=== PATIENT | male | born 1980 | race Caucasian/White ===

== ENCOUNTER → 2025-03-12 09:35 | Outpatient (BNVA) | payer OTHER, SELFPAY | PROVIDERS: Visit Provider Internal Medicine | DX: S52.121A Displaced fracture of head of right radius, initial encounter for closed fracture (principal); X58.XXXA Exposure to other specified factors, initial encounter | CPT/HCPCS: 99203 ==

== ENCOUNTER → 2025-03-14 09:48 | Outpatient (BNVA) | payer OTHER, SELFPAY | PROVIDERS: Visit Provider Internal Medicine | DX: M24.121 Other articular cartilage disorders, right elbow (principal) | CPT/HCPCS: 99213 ==

== ENCOUNTER → 2025-03-28 18:33 | Outpatient (BNV) | payer OTHER, SELFPAY | PROVIDERS: Visit Provider Radiology Diagnostic Radiology | DX: M19.021 Primary osteoarthritis, right elbow (principal) | CPT/HCPCS: 73221 ==

== ENCOUNTER 2025-03-28 19:16 | Outpatient (REF) | payer OTHER, SELFPAY ==
--- NOTE | ~2025-03-28 | MR_ITS ---
EXAMINATION: MR ELBOW WITHOUT CONTRAST, RIGHT TECHNIQUE: Multiplanar multisequence MR imaging was performed to image an upper extremity joint without contrast. INDICATION: Right elbow pain and tingling in the anterior, lateral, and posterior regions injury February 2025, PRIOR: None FINDINGS: Biceps and triceps tendons: Distal biceps tendon is intact. Distal triceps tendon is intact and unremarkable. Common flexor and extensor tendons: Common extensor tendon is intact and unremarkable. Common flexor tendon demonstrates increased signal near the humeral origin. Lateral collateral ligament complex and ulnar collateral ligament: Lateral collateral ligament complex is intact. Medial/ulnar collateral ligament appears intact. Bones/Marrow: Focal degenerative cyst is present involving the ulnar side of the radial head. There is mild reactive marrow signal in the subchondral bone of the radial head. There is multifocal reactive marrow signal changes involving subchondral bone of the patella. There are marginal osteophytes at the elbow joint, largest along the medial joint line. Soft tissues: There is no muscle edema or fatty replacement. There is no mass or fluid collection. Mildly complex joint effusion is small.. Neurovascular structures: There are no abnormalities along the major neurovascular bundles. Articular cartilage: There is diffuse deep partial and full-thickness articular cartilage loss involving the radial capitellar joint. There is focal partial thickness articular cartilage defect in the medial trochlea distal humerus and moderate thinning of cartilage on the lateral trochlea. The ulnar articular cartilage demonstrates heterogeneous signal MR/MR elbow RT wo con IMPRESSION: Osteoarthritis with severe changes in the radiocapitellar joint and mild changes in the ulnohumeral joint. There is secondary synovitis with a small joint effusion. Common flexor tendinopathy. Electronically signed by: Wood Balderas MD 03/29/2025 10:59 AM EDT
== END 2025-03-28 19:17 | disposition home or self-care (01) ==
LOC: HO.MRI 19:16
PROVIDERS: Visit Provider Internal Medicine
DX: M24.812 Other specific joint derangements of left shoulder, not elsewhere classified (principal)
CPT/HCPCS: 73221

== ENCOUNTER → 2025-04-02 09:43 | Outpatient (BNVA) | payer OTHER, SELFPAY | PROVIDERS: Visit Provider Internal Medicine | DX: S53.491D Other sprain of right elbow, subsequent encounter (principal); X58.XXXD Exposure to other specified factors, subsequent encounter; M19.021 Primary osteoarthritis, right elbow | CPT/HCPCS: 99213 ==

== ENCOUNTER 2025-04-19 09:11 | Outpatient (REF) | payer OTHER, SELFPAY ==
--- NOTE | ~2025-04-19 | XR_ITS ---
EXAMINATION: XR ELBOW, RIGHT CLINICAL INFORMATION: M25.529 - Pain in unspecified elbow COMPARISON: None available. MRI right elbow 03/28/2025. TECHNIQUE: AP, lateral, and oblique views of the right elbow. FINDINGS: No acute fracture, dislocation, or suspicious bone lesion. There is normal alignment. There is moderate to severe degenerative arthritis in the radiocapitellar, and ulnar trochlear joints, with joint space narrowing, subchondral cystic changes and marginal osteophytic spurs. The epicondyles demonstrate minimal spurring. There is no significant joint effusion. The soft tissues appear normal. XR/XR elbow RT min 3V IMPRESSION: Moderate to severe osteoarthrosis of the right elbow joint. No acute bony abnormalities. Electronically signed by: Bryan Guadalupe MD 04/19/2025 02:49 PM EDT
== END 2025-04-19 09:12 | disposition home or self-care (01) ==
LOC: HO.HOSX 09:11
PROVIDERS: Visit Provider Physician Assistant
DX: M19.021 Primary osteoarthritis, right elbow (principal); M25.521 Pain in right elbow; X50.9XXA Other and unspecified overexertion or strenuous movements or postures, initial encounter; Y92.89 Other specified places as the place of occurrence of the external cause; Y93.89 Activity, other specified; Y99.0 Civilian activity done for income or pay
CPT/HCPCS: 73080; 99202

== ENCOUNTER 2025-04-19 14:24 | Outpatient (AMB) | payer OTHER, SELFPAY ==
--- NOTE | 2025-04-19 14:32 | A.OFFVIS_ITS ---
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 One of his coworker grabbed his arm a certain way and he felt something was off in his elbow. When he was watching some training videos he started to developed more pain. He notices his ROM is limited and he feels his arm is tight. He states that he is going to [facility] physical therapy in [place]. IMPRESSION: Osteoarthritis with severe changes in the radiocapitellar joint and mild changes in the ulnohumeral joint. There is secondary synovitis with a small joint effusion. Common flexor tendinopathy. 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 Munguia is a 44 year left-hand dominant male who presents to the office today for a right elbow injury that he sustained while at work on 03/11/2025. 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 He reports that he was playing the role of the victim on the ground when his colleague looped his arm around his to attempt to drag him. He felt a pulling sensation and pain. Later during the day the pain developed more. He notices he has he a decrease in range of motion. He is working with physical therapy at [facility] in [place]. 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 No ecchymosis, erythema or joint effusion. Slight tenderness to palpation over the radial head and olecranon. Lacking about 10 degrees of full extension and flexion. Denies any numbness or tingling. Assessment & Plan Assessment & Plan (1) Osteoarthritis of right elbow: Code(s): M19.021 - Primary osteoarthritis, right elbow Category: Medical Plan Mr. Munguia is a 44 year left-hand dominant male who presents to the office today for a right elbow injury that he sustained while at work on 03/11/2025. 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 He reports that he was playing the role of the victim on the ground when his colleague looped his arm around his to attempt to drag him. He felt a pulling sensation and pain. Later during the day the pain developed more. He notices he has he a decrease in range of motion. He is working with physical therapy at [facility] in [place]. While the office today, I recommended that the patient continue attend physical therapy at [facility] in [place]. Patient did have an MRI prior to today's appointment that was obtained on 03/28/2025 which was negative for any acute findings. However, the patient does have significant degenerative changes about the right elbow. There are no surgical indications noted on MRI. I did however give the patient an out-of-work note until his follow up appointment as he needs to have full strength in bilateral upper extremities to perform his job duties. He will focus on physical therapy at this time, ice, rest, anti-inflammatories as needed. He will follow up in 4 weeks, sooner if needed. X-rays of the right elbow which were obtained while in the office today and were reviewed by me, Sharee Andrade PA-C, revealed osteoarthritis. No acute fracture or dislocation. Orders: Orders XR elbow RT min 3V 04/19/25 M25.529 - Pain in unspecified elbow Coding Level of Care Code New Pt Level 3 (56043) Diagnoses Osteoarthritis of right elbow M19.021
[2025-04-19 14:39] VITALS: BMI 29.4
== END 2025-04-19 15:05 | disposition home or self-care (01) ==
LOC: HO.HOS 14:25
PROVIDERS: Visit Provider Physician Assistant
DX: M19.021 Primary osteoarthritis, right elbow (principal)
CPT/HCPCS: 99203

== ENCOUNTER → 2025-04-19 14:28 | Outpatient (BNV) | payer OTHER, SELFPAY | PROVIDERS: Visit Provider Radiology Diagnostic Radiology | DX: M19.021 Primary osteoarthritis, right elbow (principal) | CPT/HCPCS: 73080 ==

== ENCOUNTER → 2025-04-23 09:02 | Outpatient (BNVA) | payer OTHER, SELFPAY | PROVIDERS: Visit Provider Internal Medicine | DX: S50.01XD Contusion of right elbow, subsequent encounter (principal); X58.XXXD Exposure to other specified factors, subsequent encounter | CPT/HCPCS: 99213 ==

== ENCOUNTER 2025-05-24 15:10 | Outpatient (AMB) | payer OTHER, SELFPAY ==
--- NOTE | 2025-05-24 15:12 | MHC.OFFVIS ---
Vital Signs 05/24/25 15:13 Height 5 ft 10 in Weight 205 lb BMI 29.4 Intake Visit Reasons: OV - right elbow OA, DOI 03/11/25 Intake Note: Vinnie is a 44 year old left hand dominant male who presents today for a follow up of his right elbow OA, DOI 03/11/25. At patients last visit he was referred to go to physical therapy. Patient states his ROM is improving but is unable to fully flex his arm and his shoulder and forearm still feels week. He mentions that he is attending physical therapy twice a week as well as home exercises which has helped. Patient takes Ibuprofen as needed for pain. Allergies No Known Allergies Allergy (Verified 05/24/25 15:19) HPI HPI OV - right elbow OA, DOI 03/11/25: Details: Mr. Munguia is a 44-year-old left-hand dominant male who presents to the office today after he sustained an elbow injury on 03/11/2025. 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 One of his coworkers grabbed his arm and moved it in an uncomfortable way. Ever since then he has been having pain. He has been attending [facility] Physical therapy in [place] where he does report that his range of motion and pain has been improving however is not back to baseline. They have been working on exercises pertaining to his work although he is not formally participating in a work hardening program. 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 No ecchymosis, erythema or joint effusion. Lacking about 5 degrees of full extension and flexion. Denies any numbness or tingling. Assessment & Plan Assessment & Plan (1) Osteoarthritis of right elbow: Code(s): M19.021 - Primary osteoarthritis, right elbow Category: Medical Plan Mr. Munguia is a 44-year-old left-hand dominant male who presents to the office today after he sustained an elbow injury on 03/11/2025. 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 One of his coworkers grabbed his arm and moved it in an uncomfortable way. Ever since then he has been having pain. He has been attending [facility] Physical therapy in [place] where he does report that his range of motion and pain has been improving however is not back to baseline. They have been working on exercises pertaining to his work although he is not formally participating in a work hardening program. While in the office today, we discussed continuation of physical therapy. Patient is not at the recovery point where he is able to return back to work as a full-time hearing care practitioner. I feel it is necessary to continue with physical therapy to work on range of motion and strengthening prior to returning back full-time regular duty. He will follow up in 5 weeks with a goal of returning back to work full-time regular duty, sooner if needed Coding Level of Care Code Est Pt Level 3 (92017) Diagnoses Osteoarthritis of right elbow M19.021
[2025-05-24 15:13] VITALS: BMI 29.4
== END 2025-05-24 15:26 | disposition home or self-care (01) ==
LOC: HO.HOS 15:10
PROVIDERS: Visit Provider Physician Assistant
DX: M19.021 Primary osteoarthritis, right elbow (principal)
CPT/HCPCS: 99213

== ENCOUNTER → 2025-05-24 15:10 | Outpatient (BNVA) | payer OTHER, SELFPAY | PROVIDERS: Visit Provider Physician Assistant | DX: M19.021 Primary osteoarthritis, right elbow (principal) | CPT/HCPCS: 99212 ==

== ENCOUNTER → 2025-06-01 11:15 | Outpatient (BNVA) | payer OTHER, SELFPAY | PROVIDERS: Visit Provider Internal Medicine | DX: S53.401D Unspecified sprain of right elbow, subsequent encounter (principal); S43.401D Unspecified sprain of right shoulder joint, subsequent encounter; X58.XXXD Exposure to other specified factors, subsequent encounter | CPT/HCPCS: 99213 ==

== ENCOUNTER 2025-06-29 10:42 | Outpatient (AMB) | payer OTHER, SELFPAY ==
--- NOTE | 2025-06-29 10:50 | A.OFFVIS_ITS ---
Intake Visit Reasons: OV- OV - right elbow OA, DOI 03/11/25 per Intake Note: Vinnie is a 44 year old left hand dominant male who presents today for a follow up of his right elbow OA, DOI 03/11/25. At patients he was advised to continue physical therapy to work on range of motion and strengthening prior to returning back full-time regular duty. Patient states that he is doing okay but still feels he needs more work with physical therapy. He notices that his ROM is not where he wants it to be. Patient informed me that physical therapy wants him to go to a work hard program. Allergies No Known Allergies Allergy (Verified 06/29/25 10:54) HPI HPI OV- OV - right elbow OA, DOI 03/11/25 per : Details: Mr. Munguia is a 44-year-old left-hand dominant male who presents to the office today after he sustained an elbow injury on 03/11/2025. 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 One of his coworkers grabbed his arm and moved it in an uncomfortable way. Ever since then he has been having pain. He has been attending [facility] Physical therapy in [place] where he does report that his range of motion and pain has been improving however is not back to baseline. 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 No ecchymosis, erythema or joint effusion. Lacking about 5 degrees of full extension and flexion. Denies any numbness or tingling. Assessment & Plan Assessment & Plan (1) Osteoarthritis of right elbow: Code(s): M19.021 - Primary osteoarthritis, right elbow Category: Medical Plan Mr. Munguia is a 44-year-old left-hand dominant male who presents to the office today after he sustained an elbow injury on 03/11/2025. 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 One of his coworkers grabbed his arm and moved it in an uncomfortable way. Ever since then he has been having pain. He has been attending [facility] Physical therapy in [place] where he does report that his range of motion and pain has been improving however is not back to baseline. While in the office today a formal occupational therapy order has been placed to do a work hardening program. He does not feel that he is safe to return back to work as he does not have full function of the right upper extremity. I did discuss with the patient that due to the amount of arthritis that is noted in the joint on x-ray he may not be able to perform the same amount of range of motion to the contralateral side. The duration of the work hardening program will be 4 weeks. He will follow up with me in 6 weeks with a goal of returning back to work, sooner if needed. Orders: Orders OT Evaluation and Treatment Today M19.021 - Primary osteoarthritis, right elbow Coding Level of Care Code Est Pt Level 3 (80688) Diagnoses Osteoarthritis of right elbow M19.021
== END 2025-06-29 11:08 | disposition home or self-care (01) ==
LOC: HO.HOS 10:43
PROVIDERS: Visit Provider Physician Assistant
DX: M19.021 Primary osteoarthritis, right elbow (principal)
CPT/HCPCS: 99213

== ENCOUNTER → 2025-06-29 10:42 | Outpatient (BNVA) | payer OTHER, SELFPAY | PROVIDERS: Visit Provider Physician Assistant | DX: M19.021 Primary osteoarthritis, right elbow (principal) | CPT/HCPCS: 99212 ==

== ENCOUNTER → 2025-06-29 11:17 | Outpatient (BNVA) | payer OTHER, SELFPAY | PROVIDERS: Visit Provider Internal Medicine | DX: M19.021 Primary osteoarthritis, right elbow (principal); M25.521 Pain in right elbow | CPT/HCPCS: 99213 ==

== ENCOUNTER 2025-08-17 09:41 | Outpatient (AMB) | payer OTHER, SELFPAY ==
--- NOTE | 2025-08-17 09:45 | MHC.OFFVIS ---
Intake Visit Reasons: OV - right elbow OA, DOI 03/11/25 Intake Note: Vinnie is a 44 year old left hand dominant male who presents today for a follow up of his right elbow OA, DOI 03/11/25. At patients last visit he was advised to continue work hardening program. Patient reports he is doing good. He states that the program has helped him a lot. Allergies No Known Allergies Allergy (Verified 08/17/25 09:45) HPI HPI OV - right elbow OA, DOI 03/11/25: Details: Mr. Munguia is a 44-year-old left-hand dominant male who presents to the office today for routine follow up of a right elbow injury that he sustained on 03/11/2025. He has been attending work conditioning at physical therapy with [facility] in [place]. He reports that he has made great progress and although he continues to feel crunching in the right elbow he feels he is ready to return back to work. 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 No ecchymosis, erythema or joint effusion. ROM 0-140 with full pronation and supination. Denies any numbness or tingling. NVI. Psych Appearance: grossly normal Mental Status: mental status grossly normal Attitude: cooperative Assessment & Plan Assessment & Plan (1) Osteoarthritis of right elbow: Code(s): M19.021 - Primary osteoarthritis, right elbow Category: Medical Plan Mr. Munguia is a 44-year-old left-hand dominant male who presents to the office today for routine follow up of a right elbow injury that he sustained on 03/11/2025. He has been attending work conditioning at physical therapy with [facility] in [place]. He reports that he has made great progress and although he continues to feel crunching in the right elbow he feels he is ready to return back to work. While the office today, the patient reports that he is doing very well after work conditioning. He may resume back to normal activities as tolerated. I provided him with a return to work note to begin 08/18/2025 full-time regular duty. He will follow up with [facility] sooner if needed. Coding Level of Care Code Est Pt Level 3 (99734) Diagnoses Osteoarthritis of right elbow M19.021
== END 2025-08-17 10:16 | disposition home or self-care (01) ==
LOC: HO.HOS 09:42
PROVIDERS: Visit Provider Physician Assistant
DX: M19.021 Primary osteoarthritis, right elbow (principal)
CPT/HCPCS: 99213

== ENCOUNTER → 2025-08-17 09:41 | Outpatient (BNVA) | payer OTHER, SELFPAY | PROVIDERS: Visit Provider Physician Assistant | DX: M19.021 Primary osteoarthritis, right elbow (principal) | CPT/HCPCS: 99212 ==

== ENCOUNTER → 2025-08-17 10:30 | Outpatient (BNVA) | payer OTHER, SELFPAY | PROVIDERS: Visit Provider Internal Medicine | DX: M25.521 Pain in right elbow (principal); Z02.79 Encounter for issue of other medical certificate | CPT/HCPCS: 99213 ==